=== PATIENT | female | born 1970 | race Caucasian/White ===

== ENCOUNTER → 2018-12-16 11:00 | Outpatient (CLI) | payer OTHER, SELFPAY ==
[2018-12-16 12:07] LABS: Add Manual Diff / Slide Review NO; Basophils Absolute Auto 0 /uL (0-100); Basophils Percent Auto 0.4 % (0-2); Eosinophils Absolute Auto 100 /uL (0-450); Eosinophils Percent Auto 1.3 % (2-4); Hematocrit 37.7 % (36-46); Hemoglobin 12.8 g/dL (12.0-16.0); Lymphocytes Absolute Auto 1400 /uL (1100-4500); Lymphocytes Percent Auto 24.1 % (25-40); Mean Corpuscular Hemoglobin 30.7 PG (26-34); Mean Corpuscular Volume 90.4 fL (80-100); Monocytes Absolute Auto 500 /uL (0-900); Monocytes Percent Auto 7.6 % (3-14); Neutrophils Absolute Auto 4000 /uL (1500-7000); Neutrophils Percent Auto 66.6 % (50-75); Platelet Count 270 X10^3/uL (150-400); Red Blood Cell Count 4.17 X10^6/uL (4.0-5.2); Red Cell Distribution Width 13.1 % (11.6-14.8)
[2018-12-16 12:28] LABS: Erythrocyte Sedimentation Rate 8 MM/HR (0-20)
[2018-12-16 12:58] LABS: Alanine Aminotransferase 17 IU/L (9-52); Albumin 4.4 g/dL (3.5-5.0); Albumin Globulin Ratio 1.8 (1.0-2.8); Alkaline Phosphatase 46 U/L (38-126); Aspartate Aminotransferase 20 IU/L (14-36); BUN Creatinine Ratio 15.7 (6-22); Bilirubin Total 0.8 mg/dL (0.2-1.3); Blood Urea Nitrogen 11 mg/dL (7-17); Carbon Dioxide 26 mmol/L (22-32); Chloride 101 mmol/L (98-107); Cholesterol 161 mg/dL (140-199); Estimated Glomerular Filt Rate > 60.0 mL/min (>60); Globulin 2.5 g/dL (1.7-4.1); Glucose 88 mg/dL (70-100); HDL Cholesterol 83 mg/dL (40-60); HEMOLYSIS < 15 (0-50); LDL Cholesterol Calculated 69 mg/dL (<100); Potassium 4.4 mmol/L (3.4-5.1); Sodium 136 mmol/L (137-145); Total Protein 6.9 g/dL (6.3-8.2); Triglycerides 47 mg/dL (35-150)
[2018-12-16 13:02] LABS: High Sensitivity CRP - Cardiac 1.1 mg/L (1.0-3.0)
[2018-12-16 13:16] LABS: Free T3, Triiodothyronine Free 3.26 pg/mL (2.77-5.27); Free T4, Direct Thyroxine 1.11 ng/dL (0.78-2.19)
[2018-12-16 13:30] LABS: Thyroid Stimulating Hormone 0.81 uIU/mL (0.47-4.68)
[2018-12-16 13:34] LABS: Ferritin 50.7 ng/mL (6.27-137)
[2018-12-18 19:40] LABS: ANA Pattern Homogeneous; ANA Screen, IFA Positive (Negative); ANA Titer 1:40 titer (<1:40)
[2018-12-19 12:29] LABS: (tTG) Ab, IgA < 1 U/mL
[2018-12-19 19:32] LABS: Homocysteine 9.5 umol/L (< 10.4)
== END ==
PROVIDERS: Visit Provider Naturopath
DX: Z86.2 Personal history of diseases of the blood and blood-forming organs and certain disorders involving the immune mechanism (principal); M79.10 Myalgia, unspecified site; Z84.89 Family history of other specified conditions; R19.7 Diarrhea, unspecified; M25.50 Pain in unspecified joint; L71.9 Rosacea, unspecified; R53.82 Chronic fatigue, unspecified; D72.810 Lymphocytopenia; R76.0 Raised antibody titer; Z13.6 Encounter for screening for cardiovascular disorders
CPT/HCPCS: 36415; 80053; 80061; 82728; 82784; 83090; 83516; 84439; 84443; 84481; 85025; 85651; 86038; 86140; 86255